=== PATIENT | female | born 1950 | race Caucasian/White ===

== ENCOUNTER 2017-07-16 07:23 | Emergency (ER) | payer MEDICARE, OTHER ==
[~2017-07-16] VITALS: Ht 160 cm; Wt 72.6 kg
[2017-07-16 07:45] VITALS: BP 172/68
--- NOTE | 2017-07-16 07:54 | Emergency Room Report ---
History of Present Illness General Chief Complaint: Nausea, Vomiting, and Diarrhea Source: Patient Present Illness HPI Patient presents with vomiting and diarrhea. She also has abdominal pain is 7/ 10. This is epigastric and nonradiating. This began last night. Her had the same 3 days ago but is better at this time. She denies any fevers or chills. She denies any melena or blood in her vomitus. She denies any travel. The stool is loose and brown. The patient has chronic edema of her lower extremities. This is no change. Has had this for 4-5 years. She denies any heart failure or renal problems. This has been treated with HCTZ. No anxiety, chest pain, palpitations. There is some weakness as she has not been able to keep anything down. No rash. No headache. Allergies: Uncoded Allergies: ROCHA BEANS (Allergy, Unknown, 07/16/17) Patient History Past Medical History: see triage record Social History: Denies: smoking, alcohol use Social History Narrative - here with son Last Menstrual Period: 2006 Now: No Reviewed Nursing Documentation: PMH: Agreed, PSxH: Agreed Nursing Documentation-PMH Past Medical History: No Stated History Review of Systems All Other Systems: negative except mentioned in HPI Physical Exam Vital Signs Date Time Temp Pulse Resp B/P (MAP) Pulse Ox O2 Delivery O2 Flow Rate FiO2 07/16/17 07:31 98.1 77 18 173/76 96 Room Air Sp02 EP Interpretation: reviewed, normal General Appearance: well appearing, no apparent distress, GCS 15 Head: normocephalic, atraumatic Eyes: bilateral eye normal inspection, bilateral eye PERRL ENT: moist mucus membranes Neck: supple Respiratory: lungs clear, normal breath sounds Cardiovascular #1: regular rate, rhythm, edema - 2+ bilateral - pedal and tibial Cardiovascular #2: 2+ radial (R) Gastrointestinal: no guarding, no rebound, tenderness - epigastric, other - RUQ is not tender, overweight Musculoskeletal: back normal, gait/station normal, normal range of motion, no calf tenderness, Shelia's Sign negative Neurologic: alert, oriented x3, grossly normal Psychiatric: mood/affect normal Skin: normal inspection, warm/dry Medical Decision Making Diagnostic Impression: Primary Impression: Viral gastroenteritis Additional Impression: Edema Qualified Codes: R60.9 - Edema, unspecified ER Course Patient presents with epigastric pain nausea vomiting diarrhea. Differential includes gastroenteritis, gastritis, gastritis, GERD amongst others. We need to exclude cardiac cause. Evaluation will be with EKG, chest x-ray, abdominal films and labs. The patient was treated with Zofran, upset and a small dose of morphine. Hydration will be minimal as she has edema. = source. Not appear toxic or sy of bacterial invasive GItis. Exam against DVT. Patient refuses morphine. States pain resolved. Labs significant for normal WBC, H/H, electrolytes and BNP. EKG unremarkable as is chest XR. Improved with treatment. Discussed treatment plan and observation. Told not to start dyazide until GI sy resolved. Patient stable for outpatient observation and treatment. Laboratory Tests Test 07/16/17 07:58 White Blood Count 7.5 K/UL (4.8-10.8) Red Blood Count 5.20 M/UL (4.20-5.40) Hemoglobin 15.0 G/DL (12.0-16.0) Hematocrit 45.1 % (37.0-47.0) Mean Corpuscular Volume 87 FL (80-99) Mean Corpuscular Hemoglobin 28.8 PG (27.0-31.0) Mean Corpuscular Hemoglobin Concent 33.2 G/DL (32.0-36.0) Red Cell Distribution Width 11.8 % (11.6-14.8) Platelet Count 163 K/UL (150-450) Mean Platelet Volume 8.6 FL (6.5-10.1) Neutrophils (%) (Auto) % (45.0-75.0) Lymphocytes (%) (Auto) % (20.0-45.0) Monocytes (%) (Auto) % (1.0-10.0) Eosinophils (%) (Auto) % (0.0-3.0) Basophils (%) (Auto) % (0.0-2.0) Differential Total Cells Counted 100 Neutrophils % (Manual) 81 % (45-75) H Lymphocytes % (Manual) 8 % (20-45) L Monocytes % (Manual) 5 % (1-10) Eosinophils % (Manual) 1 % (0-3) Basophils % (Manual) 1 % (0-2) Band Neutrophils 4 % (0-8) Platelet Estimate Adequate Platelet Morphology Normal Red Blood Cell Morphology Normal Prothrombin Time 9.6 SEC (9.30-11.50) Prothrombin Time INR 0.9 (0.9-1.1) PTT 26 SEC (23-33) Urine Color Pale yellow Urine Appearance Clear Urine pH 6 (4.5-8.0) Urine Specific [place] 1.015 (1.005-1.035) Urine Protein Negative (NEGATIVE) Urine Glucose (UA) Negative (NEGATIVE) Urine Ketones Negative (NEGATIVE) Urine Occult Blood Negative (NEGATIVE) Urine Nitrite Negative (NEGATIVE) Urine Bilirubin Negative (NEGATIVE) Urine Urobilinogen Normal MG/DL (0.0-1.0) Urine Leukocyte Esterase 1+ (NEGATIVE) H Urine RBC 0-2 /HPF (0 - 2) Urine WBC 0-2 /HPF (0 - 2) Urine Squamous Epithelial Cells Occasional /LPF Urine Bacteria Occasional /HPF (NONE) Sodium Level 142 mEQ/L (135-145) Potassium Level 3.7 mEQ/L (3.4-4.9) Chloride Level 100 mEQ/L (98-107) Carbon Dioxide Level 31 mEQ/L (20-30) H Anion Gap 11 (5-15) Blood Urea Nitrogen 16 mg/dL (7-23) Creatinine 1.0 mg/dL (0.5-0.9) H Estimate Glomerular Filtration Rate 55.5 mL/min (>60) Glucose Level 164 mg/dL (74-106) H Calcium Level 9.0 mg/dL (8.6-10.2) Total Bilirubin 0.8 mg/dL (0.0-1.2) Aspartate Amino Transferase (AST) 15 U/L (5-40) Alanine Aminotransferase (ALT) 16 U/L (3-33) Alkaline Phosphatase 76 U/L (35-104) Troponin I < 0.30 ng/mL (<=0.30) Total Protein 6.9 g/dL (6.6-8.7) Albumin 4.3 g/dL (3.5-5.2) Globulin 2.6 g/dL Albumin/Globulin Ratio 1.6 (1.0-2.7) Lipase 31 U/L (< 60) EKG Diagnostic Results Rate: normal Rhythm: NSR ST Segments: no acute changes Rhythm Strip Diag. Results EP Interpretation: yes Rhythm: NSR, no PVC's, no ectopy Chest X-Ray Diagnostic Results Chest X-Ray Diagnostic Results : Chest X-Ray Ordered: Yes # of Views/Limited/Complete: 1 View Indication: Other EP Interpretation: Yes Interpretation: no consolidation, no effusion, no pneumothorax, no acute cardiopulmonary disease Impression: No acute disease Electronically Signed by: signed Zachary Thapa MD Last Vital Signs Date Time Temp Pulse Resp B/P (MAP) Pulse Ox O2 Delivery O2 Flow Rate FiO2 07/16/17 11:16 72 16 155/78 99 Room Air 07/16/17 10:01 97.2 Status: improved Disposition: HOME, SELF-CARE Condition: Improved Scripts Triamterene/Hydrochlorothiazide* (DYAZIDE 37.5-25 MG TAB*) 1 Each Tablet 1 TAB ORAL QOD Y for edema, #20 TAB Prov: Zachary Thapa M.D. 07/16/17 Diphenoxylate HCl/Atropine (Lomotil Tablet) 1 Each Tablet 1 EACH PO BID, #4 TAB Prov: Zachary Thapa M.D. 07/16/17 Ondansetron Odt* (ZOFRAN ODT*) 4 Mg Tab.rapdis 4 MG ORAL Q8H Y for Nausea & Vomiting, #6 TAB 0 Refills Prov: Zachary Thapa M.D. 07/16/17 Referrals: NOT CHOSEN ARIAN/,REFERRING (PCP) Zachary Thapa M.D. Jul 16, 2017 07:54
[2017-07-16] MEDS ORDERED: Famotidine 20 MG/ 2ML VIAL IVP ONE (08:00)
[2017-07-16 08:41] LABS: ALBUMIN/GLOBULIN RATIO 1.6 (1.0-2.7); GLOMERULAR FILTRATION RATE 55.5 mL/min (>60); POTASSIUM 3.7 mEQ/L (3.4-4.9); TOTAL PROTEIN 6.9 g/dL (6.6-8.7); TROPONIN I < 0.30 ng/mL (<=0.30)
--- NOTE | 2017-07-16 08:53 | Diagnostic Imaging Report ---
Indication: Chest pain Technique: XRAY CHEST 1 V Comparison:None Findings: Poor inspiration. Heart is probably normal in size. Aorta is calcified. Mild interstitial changes noted. No alveolar infiltrates. No pleural fluid. Degenerative changes present in the spine. Impression: Atherosclerotic and degenerative change. Mild interstitial disease. This may be acute or chronic. Comparison to old films would be helpful.
--- NOTE | 2017-07-16 08:54 | Diagnostic Imaging Report ---
Indication: ABD PAIN Technique: XRAY ABDOMEN 1VIEW/KUB Comparison: None. Findings: The abdomen is relatively gasless. Mild degenerative changes noted in the spine. The small amount of gas is present is in normal size loops of bowel. No gross free air. Impression: Degenerative change of the spine. Relatively gasless abdomen.
[2017-07-16 09:05] VITALS: BP 148/50
[2017-07-16 09:12] LABS: MEAN CORPUSCULAR HEMOGLOBIN 28.8 PG (27.0-31.0); MEAN CORPUSCULAR HGB CONC 33.2 G/DL (32.0-36.0); MEAN CORPUSCULAR VOLUME 87 FL (80-99); MEAN PLATELET VOLUME 8.6 FL (6.5-10.1); PLATELET COUNT 163 K/UL (150-450); RED CELL DISTRIBUTION WIDTH 11.8 % (11.6-14.8); WHITE BLOOD COUNT 7.5 K/UL (4.8-10.8)
[2017-07-16 09:14] LABS: APPEARANCE,URINE CLEAR; KETONES,URINE NEGATIVE (NEGATIVE); LEUKOCYTE ESTERASE ,URINE 1+ (NEGATIVE); NITRITE,URINE NEGATIVE (NEGATIVE); PH,URINE 6 (4.5-8.0); PROTEIN,URINE NEGATIVE (NEGATIVE); UROBILINOGEN,URINE NORMAL MG/DL (0.0-1.0)
[2017-07-16 09:30] LABS: BACTERIA,URINE OCCASIONAL /HPF; INR 0.9 (0.9-1.1); PROTHROMBIN TIME 9.6 SEC (9.30-11.50); RBC,URINE 0-2 /HPF (0 - 2); SQUAMOUS EPITHELIAL CELL,UR OCCASIONAL /LPF (NONE/OCC); WBC,URINE 0-2 /HPF (0 - 2)
[2017-07-16 09:58] LABS: BAND NEUTROPHILS % (MANUAL) 4 % (0-8); BASOPHILS % (MANUAL) 1 % (0-2); EOSINOPHILS % (MANUAL) 1 % (0-3); LYMPHOCYTES % (MANUAL) 8 % (20-45); NEUTROPHILS % (MANUAL) 81 % (45-75); TOTAL CELLS COUNTED 100
[2017-07-16 10:00] LABS: PLATELET ESTIMATE ADEQUATE; PLATELET MORPHOLOGY NORMAL
[2017-07-16 10:01] VITALS: BP 138/72
[2017-07-16] MEDS ORDERED: LOMOTIL TABLET1 EAC1 PO (10:45)
[2017-07-16] MEDS ORDERED: ZOFRAN ODT4 MG ORAL (10:45)
[2017-07-16] MEDS ORDERED: TRIAMTERENE-HC1 EAC5 ORAL (10:45)
[2017-07-16 11:16] VITALS: BP 155/78
--- NOTE | 2017-07-18 18:38 | Cardiology Report ---
APPROVED REPORT EKG Measurement Heart [id number] Normal sinus rhythm Normal ECG
== END 2017-07-16 11:18 | disposition home or self-care (01) ==
LOC: EMR 07:51
DX: A08.4 Viral intestinal infection, unspecified (principal); R60.0 Localized edema
CPT/HCPCS: 36415; 71010; 74000; 80053; 81003; 83690; 84484; 85007; 85025; 85610; 85730; 93005; 96374; 96375; 99284; J1170; J2405; S0028

== ENCOUNTER 2018-02-12 17:12 | Emergency (ER) | payer MEDICARE, OTHER ==
[~2018-02-12] VITALS: Ht 157.5 cm; Wt 72.6 kg
[~2018-02-12 17:12] MED LIST: LOMOTIL TABLET1 EAC1 PO; TRIAMTERENE-HC1 EAC5 ORAL; ZOFRAN ODT4 MG ORAL
[2018-02-12 17:28] VITALS: BP 171/69
[2018-02-12] MEDS ORDERED: Norco 5mg/325mg tab ORAL ONE (17:45)
--- NOTE | 2018-02-12 17:49 | Emergency Room Report ---
History of Present Illness General Chief Complaint: Pain Source: Patient Present Illness HPI 68-year-old female with chronic lower extremity edema, presenting with right knee pain. Patient woke up in the middle the night, not sure if he checked she twisted it, noted her right knee to be swollen and painful. Patient has been able to walk however with a limp. Denies any fever chills, no redness of the area. Denies any history of gout Allergies: Uncoded Allergies: ROCHA BEANS (Allergy, Unknown, 07/16/17) Patient History Past Medical History: see triage record Past Surgical History: none Pertinent Family History: none Reviewed Nursing Documentation: PMH: Agreed; PSxH: Agreed Nursing Documentation-PMH Hx Hypertension: Yes Hx Gastrointestinal Problems: Yes - ERCP,CHOLECYSTECTOMY LAST JANUARY. Review of Systems All Other Systems: negative except mentioned in HPI Physical Exam Vital Signs Date Time Temp Pulse Resp B/P (MAP) Pulse Ox O2 Delivery O2 Flow Rate FiO2 02/12/18 17:16 98.6 66 18 171/69 94 Room Air 98.6 Sp02 EP Interpretation: reviewed, normal General Appearance: alert, GCS 15, non-toxic, mild distress Head: normocephalic, atraumatic Eyes: bilateral eye normal inspection, bilateral eye PERRL, bilateral eye EOMI ENT: normal ENT inspection, normal pharynx, normal voice, moist mucus membranes Neck: normal inspection, full range of motion, supple Respiratory: normal inspection, lungs clear, normal breath sounds, no respiratory distress, no retraction, no wheezing, speaking full sentences, chest symmetrical Cardiovascular #1: regular rate, rhythm, normal capillary refill, edema Cardiovascular #2: 2+ radial (R), 2+ radial (L) Gastrointestinal: normal inspection, non tender, soft, non-distended, no guarding Musculoskeletal: other - Right knee with mild effusion, no redness, no warmth, has full passive range of motion Neurologic: normal inspection, alert, oriented x3, responsive, motor strength/ tone normal, sensory intact, normal gait, speech normal Psychiatric: normal inspection, judgement/insight normal, memory normal Skin: normal inspection, normal color, no rash, warm/dry, well hydrated, normal turgor Procedures Splinting Splinting : Consent: Verbal Location: R knee Pre-Made Type: knee immobilizer Pre-Proc Neuro Vasc Exam: normal Patient Tolerated: Well Complications: None Medical Decision Making Diagnostic Impression: Primary Impression: Knee effusion, right ER Course 68-year-old female with right knee pain DDX: Sprain/strain vs. fracture versus ligamentous injury Osteoarthritis, gout At this time I am not concerned with septic joint, no fever no chills, is not warm Plan: Pain control XR ER course: X-ray negative for fracture, ++degenerative changes Patient placed in knee immobilizer and crutches Disposition: Patient is to be discharged home Patient instructed to keep splint on at all times, and to follow up with orthopedic surgery in 1 week. Patient educated to rest, ice, and elevate extremity and to avoid vigorous activity. Strict precautions discussed with patient on when to return to the emergency room including increased redness or swelling joints, increased pain/swelling of extremity, fever or chills, which could indicate severe illness. Patient is to follow up with their primary care doctor within 5 days. Please note that this Emergency Department Report was dictated using [employer] conversion technician technology software, occasionally this can lead to erroneous entry secondary to interpretation by the dictation equipment. Xray ordered: Right knee 3 view Indication: Pain EP Interpretation: Yes Interpretation: +degen changes, no fx, minimal effusion Impression: No acute disease Electronically signed by Ralf Ball MD Last Vital Signs Date Time Temp Pulse Resp B/P (MAP) Pulse Ox O2 Delivery O2 Flow Rate FiO2 02/12/18 17:28 98.6 18 171/69 94 Room Air 98.6 02/12/18 17:16 66 Disposition: HOME, SELF-CARE Condition: Improved Scripts Hydrocodone Bit/Acetaminophen 5-325* (NORCO 5-325*) 1 Each Tablet 1 TAB ORAL Q6H PRN for For Pain, #20 TAB 0 Refills Prov: Ralf Ball M.D. 02/12/18 Ralf Ball M.D. Feb 12, 2018 17:49
[2018-02-12] MEDS ORDERED: NORCO 5-325 TA1 EACH ORAL (18:06)
[2018-02-12 18:12] VITALS: BP 162/59
--- NOTE | 2018-02-13 09:57 | Diagnostic Imaging Report ---
Indication: Pain Knee pain/trauma 3 views of the right knee were obtained. Findings: There is distention of the suprapatellar pouch consistent with moderate to large joint effusion. No fracture or malalignment identified. Marginal spurs noted involving the knee joint. IMPRESSION: Large joint effusion Moderate arthrosis
== END 2018-02-12 18:24 | disposition home or self-care (01) ==
LOC: EMR 17:50
DX: M25.461 Effusion, right knee (principal); I10 Essential (primary) hypertension; Z90.49 Acquired absence of other specified parts of digestive tract
CPT/HCPCS: 99283

== ENCOUNTER 2019-05-26 10:17 | Emergency (ER) | payer MEDICARE, OTHER ==
[~2019-05-26] VITALS: Ht 160 cm; Wt 81.6 kg
[~2019-05-26 10:17] MED LIST changes: +NORCO 5-325 TA1 EACH ORAL
[2019-05-26] MEDS ORDERED: NKM (10:37)
--- NOTE | 2019-05-26 10:39 | Emergency Room Report ---
History of Present Illness General Chief Complaint: To Be Triaged Present Illness HPI 69-year-old female presents with chronic right knee pain that started greater than 20 days ago, patient reports right knee pain, right posterior thigh pain worsened with movement alleviated with rest, she states she has chronic pedal edema, no chest pain, no shortness of breath, no abdominal pain, she states she does not take her water pill and does not like to see doctors, patient wants to make sure nothing is broken she denies any trauma. Patient presents for evaluation Allergies: Uncoded Allergies: ROCHA BEANS (Allergy, Unknown, 07/16/17) Patient History Past Medical History: see triage record Reviewed Nursing Documentation: PMH: Agreed; PSxH: Agreed Nursing Documentation-PMH Hx Hypertension: Yes Hx Gastrointestinal Problems: Yes - ERCP,CHOLECYSTECTOMY LAST JANUARY. Review of Systems Musculoskeletal: Reports: joint pain, muscle pain; Denies: back pain All Other Systems: negative except mentioned in HPI Physical Exam Sp02 EP Interpretation: reviewed, normal General Appearance: well appearing, no apparent distress, alert Head: normocephalic, atraumatic Eyes: bilateral eye PERRL, bilateral eye EOMI ENT: uvula midline, moist mucus membranes Neck: supple, thyroid normal, supple/symm/no masses Respiratory: no respiratory distress, no accessory muscle use Cardiovascular #1: edema - Bilateral edema Gastrointestinal: non tender, soft, no guarding, no rebound Musculoskeletal: normal inspection, other - Right lower Extremity: 2+ PT DP, swelling noted, with pedal edema, slight tenderness to palpation of the right knee, valgus varus negative, anterior posterior drawer negative, patient is able to ambulate without any issues. No obvious effusion Neurologic: alert, oriented x3 Psychiatric: mood/affect normal Skin: no rash, warm/dry Medical Decision Making Diagnostic Impression: Primary Impression: Knee pain, right ER Course Patient with chronic right knee pain, patient most likely having knee pain secondary to improper foot wear, patient wears flip-flops, because she cannot wear any other shoes due to the edema in her bilateral legs, she had a negative work-up, no evidence of heart failure, patient was started on a water pill, patient has been noncompliant, her right knee pain is accumulation of her noncompliance, gait compensation, patient with improper foot wear, patient counseled to follow-up with a primary care doctor as well as an orthopedic doctor and a mule tender, patient will need proper shoes for support. Her neurovascular exam is unremarkable, low suspicion for fracture, possible osteoporosis, Other X-Ray Diagnostic Results Other X-Ray Diagnostic Results #1: X-Ray ordered: Right knee # of Views/Limited Vs Complete: 3 View Indication: Pain EP Interpretation: Yes Interpretation: no dislocation, no soft tissue swelling, no fractures Impression: No acute disease Electronically Signed by: Joel Mills MD Other X-Ray Diagnostic Results #2: X-Ray ordered: Lumbar sacral # of Views/Limited Vs Complete: 3 View Indication: Pain EP Interpretation: Yes Interpretation: no dislocation, no soft tissue swelling, no fractures Impression: No acute disease Electronically Signed by: Joel Mills MD Disposition: HOME, SELF-CARE Condition: Stable Scripts Methocarbamol* (ROBAXIN-750*) 750 Mg Tablet 750 MG PO QID, #28 TAB 0 Refills Prov: Joel Mills M.D. 05/26/19 Naproxen* (NAPROSYN*) 250 Mg Tablet 500 MG ORAL BID PRN for For Pain, #40 TAB 0 Refills Prov: Joel Mills M.D. 05/26/19 [facility] Patient Instructions: KNEE PAIN, Uncertain Cause, Knee Pain Additional Instructions: Please follow-up with your primary care doctor, consider taking the water pill, please also follow-up with podiatry for proper foot wear, please follow-up with an orthopedic surgeon. The patient was provided with discharge instructions, notified to follow-up with a primary care doctor and or specialist in the next 24-48 hours, and to return to the ED if they have worsening of their symptoms. Please note that this report is being documented using [employer]ac[employer] technology. This can lead to erroneous entry secondary to incorrect interpretation by the dictating instrument. Joel Mills M.D. May 26, 2019 10:39
--- NOTE | 2019-05-26 10:40 | NUR ---
ED Nurse Note: Pt came in from home due to R leg pain, started from R thigh radiating down x 1 month. Pain 10/10 ana cristina. BP 200/95 ana cristina, ERMD aware. Will cont to monitor.
[2019-05-26] MEDS ORDERED: NAPROXEN250 MG ORAL (10:41)
[2019-05-26] MEDS ORDERED: Naproxen 500mg tab ORAL ONE (10:45)
--- NOTE | 2019-05-26 11:13 | Diagnostic Imaging Report ---
Indication: Pain Knee pain/trauma 3 views of the right knee were obtained. Findings: There is joint space narrowing with marginal osteophyte formation and subchondral sclerosis. No definite fractures identified. No definite joint effusion seen. The bones are osteopenic. IMPRESSION: No acute injury appreciated. Study limited in this regard due to osteoporosis
--- NOTE | 2019-05-26 11:27 | Diagnostic Imaging Report ---
Indication: Back pain Comparison: None Findings: 3 views of the lumbar spine were obtained. Multilevel narrowing of intervertebral disks and associated endplate and facet osteophytes are present. No malalignment identified. No acute fracture definitely seen. The bones are osteopenic. Impression: Moderate spondylosis. No acute injury appreciated.
[2019-05-26] MEDS ORDERED: ROBAXIN-750750 MG PO (11:39)
[2019-05-26 11:45] VITALS: BP 200/95
[2019-05-26] MEDS ORDERED: oxyCODONE HCL/Acetaminophen 5/325mg ORAL ONE (11:45)
--- NOTE | 2019-05-26 11:45 | NUR ---
ER DISCHARGE NOTE: Patient is cleared to be discharged per ERMD, pt is aox4, on room air, with stable vital signs. pt was given dc and prescription instructions, pt was able to verbalize understanding, pt id band removed. pt is able to ambulate with steady gait. pt took all belongings.
== END 2019-05-26 11:45 | disposition home or self-care (01) ==
LOC: EMR 10:36
DX: M25.561 Pain in right knee (principal); I10 Essential (primary) hypertension; Z90.49 Acquired absence of other specified parts of digestive tract; Z91.14 Patient's other noncompliance with medication regimen
CPT/HCPCS: 72020; 99284

== ENCOUNTER 2019-12-18 04:02 | Emergency (ER) | payer MEDICARE, OTHER ==
[~2019-12-18] VITALS: Ht 167.6 cm; Wt 72.6 kg
[~2019-12-18 04:02] MED LIST changes: +NAPROXEN250 MG ORAL; +NKM; +ROBAXIN-750750 MG PO
--- NOTE | 2019-12-18 04:27 | Emergency Room Report ---
History of Present Illness General Chief Complaint: Nausea, Vomiting, and Diarrhea Source: Patient Present Illness HPI Disclaimer: Please note that this report is being documented using DRAGON technology. This can lead to erroneous entry secondary to incorrect interpretation by the dictating instrument. HPI: 69-year-old female with a history of hypertension noncompliant with medications presents for evaluation abdominal pain vomiting diarrhea. Symptoms began approximately midnight. No new foods or sick contacts noted. She denies fever or chills. Notes epigastric abdominal burning and persistent vomiting that is nonbloody. Also notes copious diarrhea. Denies melena or hematochezia. Denies dysuria hematuria. Patient had a cholecystectomy many years ago but no other abdominal surgeries. Denies fever chills, chest pain or shortness of breath PMH: Hypertension PSH: Cholecystectomy Allergies: None to medication Social Hx: Denies alcohol use Allergies: Uncoded Allergies: ROCHA BEANS (Allergy, Unknown, 07/16/17) Patient History Now: No Nursing Documentation-PMH Hx Hypertension: Yes Review of Systems All Other Systems: negative except mentioned in HPI Physical Exam Vital Signs Date Time Temp Pulse Resp B/P (MAP) Pulse Ox O2 Delivery O2 Flow Rate FiO2 12/18/19 04:11 97.5 88 22 155/78 (103) 95 General: Awake and alert, no acute distress HEENT: NC/AT. EOMI. Cardiovascular: RRR. S1 and S2 normal. No murmur appreciated Resp: Normal work of breathing. No cough, wheezing or crackles appreciated Abdomen: Abdomen is soft, nondistended, obese abdomen. Tender in the epigastrium. No tenderness in lower quadrants. No rebound. Negative Lala's. Skin: Intact. No abrasions, laceration or rash over the exposed skin MSK: Normal tone and bulk. Moving all extremities. No obvious deformity. Neuro: Awake and alert. Mentating appropriately. Medical Decision Making Diagnostic Impression: Primary Impression: Gastroenteritis Additional Impression: Viral gastroenteritis ER Course 69-year-old female presents for evaluation of 5 hours abdominal discomfort, vomiting and diarrhea. Differential includes but not limited to gastritis, gastroenteritis, pancreatitis, appendicitis, UTI, pyelonephritis, nephrolithiasis. Of these, gastroenteritis from a viral source will be most likely. Will start IV fluids, antiemetics, check screening labs. Also give famotidine and GI cocktail when she stops vomiting. Laboratory Tests Test 12/18/19 04:30 12/18/19 05:50 White Blood Count 9.2 K/UL (4.8-10.8) Red Blood Count 5.16 M/UL (4.20-5.40) Hemoglobin 14.6 G/DL (12.0-16.0) Hematocrit 43.3 % (37.0-47.0) Mean Corpuscular Volume 84 FL (80-99) Mean Corpuscular Hemoglobin 28.4 PG (27.0-31.0) Mean Corpuscular Hemoglobin Concent 33.8 G/DL (32.0-36.0) Red Cell Distribution Width 11.9 % (11.6-14.8) Platelet Count 144 K/UL (150-450) L Mean Platelet Volume 8.7 FL (6.5-10.1) Neutrophils (%) (Auto) 84.1 % (45.0-75.0) H Lymphocytes (%) (Auto) 8.2 % (20.0-45.0) L Monocytes (%) (Auto) 6.5 % (1.0-10.0) Eosinophils (%) (Auto) 0.3 % (0.0-3.0) Basophils (%) (Auto) 0.9 % (0.0-2.0) Sodium Level 141 MMOL/L (136-145) Potassium Level 3.5 MMOL/L (3.5-5.1) Chloride Level 103 MMOL/L (98-107) Carbon Dioxide Level 31 MMOL/L (21-32) Anion Gap 7 mmol/L (5-15) Blood Urea Nitrogen 23 mg/dL (7-18) H Creatinine 0.9 MG/DL (0.55-1.30) Estimate Glomerular Filtration Rate > 60 mL/min (>60) Glucose Level 188 MG/DL (74-106) H Calcium Level 9.1 MG/DL (8.5-10.1) Total Bilirubin 0.7 MG/DL (0.2-1.0) Aspartate Amino Transferase (AST) 17 U/L (15-37) Alanine Aminotransferase (ALT) 27 U/L (12-78) Alkaline Phosphatase 67 U/L (46-116) Total Protein 7.5 G/DL (6.4-8.2) Albumin 4.0 G/DL (3.4-5.0) Globulin 3.5 g/dL Albumin/Globulin Ratio 1.1 (1.0-2.7) Lipase 144 U/L (73-393) Urine Color Pale yellow Urine Appearance Clear Urine pH 6 (4.5-8.0) Urine Specific [place] 1.020 (1.005-1.035) Urine Protein Negative (NEGATIVE) Urine Glucose (UA) Negative (NEGATIVE) Urine Ketones Negative (NEGATIVE) Urine Blood Negative (NEGATIVE) Urine Nitrite Negative (NEGATIVE) Urine Bilirubin Negative (NEGATIVE) Urine Urobilinogen Normal MG/DL (0.0-1.0) Urine Leukocyte Esterase Negative (NEGATIVE) Reevaluation Time: 06:00 Last Vital Signs Date Time Temp Pulse Resp B/P (MAP) Pulse Ox O2 Delivery O2 Flow Rate FiO2 12/18/19 04:11 97.5 88 22 155/78 (103) 95 Reevaluation Impression Labs thus far returned within normal limits. Urinalysis is pending. She is well-appearing and her symptoms are now controlled. Will sign out to oncoming provider pending urinalysis and reevaluation though anticipate discharge home. Disposition: HOME, SELF-CARE Condition: Improved Scripts Ondansetron Odt* (ZOFRAN ODT*) 4 Mg Tab.rapdis 4 MG BC EVERY 6 HOURS PRN for Nausea & Vomiting, #20 TAB 0 Refills Prov: Pascual Rogers MD 12/18/19 Pascual Rogers MD Dec 18, 2019 04:27
[2019-12-18 04:30] VITALS: BP 155/78
--- NOTE | 2019-12-18 04:30 | NUR ---
ED Nurse Note: Pt walked into ED from home for c/o abdominal pain, n/v since 0000 today. Pt states pain is mid epigastric region and nonradiating. Pt also reports multiple episodes of vomiting. Pt is aaox4, no cardiac or respiratory distress noted. pt is ambulatory. IV line established, blood drawn and sent to lab. Will continue to monitor.
--- NOTE | 2019-12-18 04:30 | NUR ---
ED Nurse Note: Pt also reports multiple episodes of diarrhea.
[2019-12-18 04:39] LABS: BASOPHILS % (AUTO) 0.9 % (0.0-2.0); EOSINOPHILS % (AUTO) 0.3 % (0.0-3.0); HEMATOCRIT 43.3 % (37.0-47.0); HEMOGLOBIN 14.6 G/DL (12.0-16.0); LYMPHOCYTES % (AUTO) 8.2 % (20.0-45.0); MEAN CORPUSCULAR VOLUME 84 FL (80-99); MONOCYTES % (AUTO) 6.5 % (1.0-10.0); NEUTROPHILS % (AUTO) 84.1 % (45.0-75.0); PLATELET COUNT 144 K/UL (150-450); RED BLOOD COUNT 5.16 M/UL (4.20-5.40); RED CELL DISTRIBUTION WIDTH 11.9 % (11.6-14.8); WHITE BLOOD COUNT 9.2 K/UL (4.8-10.8)
--- NOTE | 2019-12-18 04:40 | NUR ---
ED Nurse Note: Pt is sleeping at this time, ERMD aware of pt not providing urine sample at this time and is ok with it.
[2019-12-18 05:03] LABS: ANION GAP 7 mmol/L (5-15); BLOOD UREA NITROGEN 23 mg/dL (7-18); CALCIUM 9.1 MG/DL (8.5-10.1); CARBON DIOXIDE 31 MMOL/L (21-32); CHLORIDE 103 MMOL/L (98-107); CREATININE 0.9 MG/DL (0.55-1.30); POTASSIUM 3.5 MMOL/L (3.5-5.1); SODIUM 141 MMOL/L (136-145)
[2019-12-18 05:08] LABS: ALANINE AMINOTRANSFERASE 27 U/L (12-78); ALBUMIN/GLOBULIN RATIO 1.1 (1.0-2.7); ALKALINE PHOSPHATASE 67 U/L (46-116); ASPARTATE AMINO TRANSFERASE 17 U/L (15-37); BILIRUBIN,TOTAL 0.7 MG/DL (0.2-1.0)
[2019-12-18] MEDS ORDERED: ONDANSETRON ODT4 MG BC (05:36)
--- NOTE | 2019-12-18 07:09 | NUR ---
HAND-OFF: Report given to LACIE Allen.
[2019-12-18 07:33] LABS: APPEARANCE,URINE CLEAR; BILIRUBIN, URINE NEGATIVE (NEGATIVE); COLOR,URINE PALE YELLOW; GLUCOSE, URINE (UA) NEGATIVE (NEGATIVE); KETONES,URINE NEGATIVE (NEGATIVE); LEUKOCYTE ESTERASE ,URINE NEGATIVE (NEGATIVE); NITRITE,URINE NEGATIVE (NEGATIVE); PH,URINE 6 (4.5-8.0); PROTEIN,URINE NEGATIVE (NEGATIVE); UROBILINOGEN,URINE NORMAL MG/DL (0.0-1.0)
[2019-12-18 07:58] VITALS: BP 150/80
--- NOTE | 2019-12-18 07:58 | NUR ---
ER DISCHARGE NOTE: Patient is cleared to be discharged per ERMD, pt is aox4, on room air, with stable vital signs. pt was given dc and prescription instructions, pt was able to verbalize understanding, pt id band and iv site removed without complications. pt is able to ambulate with steady gait. pt took all belongings.
== END 2019-12-18 07:58 | disposition home or self-care (01) ==
LOC: EMR 04:30
DX: A08.4 Viral intestinal infection, unspecified (principal); K52.9 Noninfective gastroenteritis and colitis, unspecified; Z90.49 Acquired absence of other specified parts of digestive tract; I10 Essential (primary) hypertension
CPT/HCPCS: 36415; 80053; 81003; 83690; 85025; 96361; 96374; 96375; 99284; J2405; J7030; S0028

== ENCOUNTER 2020-03-23 10:52 | Inpatient (IN) | payer MEDICARE, OTHER ==
[~2020-03-23] VITALS: Ht 157.5 cm; Wt 72.6 kg
[~2020-03-23 10:52] MED LIST changes: +ONDANSETRON ODT4 MG BC
[2020-03-23 11:10] VITALS: BP 190/88
--- NOTE | 2020-03-23 11:10 | NUR ---
ED Nurse Note: Patient walked into ED c/o right breast pain x2-3 days. Reports redness and discharges. Denies fever/ chills. Pt AAO x4, verbally responsive. Farsi speaking only. No acute distress.
--- NOTE | 2020-03-23 11:27 | NUR ---
ED Nurse Note: IV line established. Blood and urine specimen collected and sent to lab.
[2020-03-23] MEDS ORDERED: Vancomycin 1.5 GM in NS 275 ML IVPB ONE (11:30)
[2020-03-23] MEDS ORDERED: Omnipaque-300 100ml vial INJ ONE (11:30)
--- NOTE | 2020-03-23 11:33 | Emergency Room Report ---
History of Present Illness General Chief Complaint: Skin Rash/Abscess Source: Patient, Family Member Present Illness HPI 70-year-old female presents with right breast fullness, discharge, pain x3 days no aggravating relieving factors severity is moderate, constant patient had a mammogram 1 year ago which was negative, patient presents for evaluation no fevers no chills no chest pain or shortness of breath no dyspnea on exertion Allergies: Uncoded Allergies: ROCHA BEANS (Allergy, Unknown, 07/16/17) COVID-19 Screening Contact w/high risk pt: No Recent Travel to affected area: No Experienced COVID-19 symptoms?: No COVID-19 Testing performed FINISHED CARPET INSPECTOR: No Patient History Past Medical History: see triage record Reviewed Nursing Documentation: PMH: Agreed; PSxH: Agreed Nursing Documentation-PMH Past Medical History: No Stated History Hx Hypertension: Yes Review of Systems All Other Systems: negative except mentioned in HPI Physical Exam Vital Signs Date Time Temp Pulse Resp B/P (MAP) Pulse Ox O2 Delivery O2 Flow Rate FiO2 03/23/20 11:06 98.4 75 15 190/88 (122) 95 Room Air Sp02 EP Interpretation: reviewed, normal General Appearance: well appearing, no apparent distress, alert Head: normocephalic, atraumatic Eyes: bilateral eye PERRL, bilateral eye EOMI ENT: uvula midline, moist mucus membranes Neck: supple, thyroid normal, supple/symm/no masses Respiratory: lungs clear, no respiratory distress, no retraction, no accessory muscle use Cardiovascular #1: normal peripheral pulses, regular rate, rhythm, no edema, no gallop, no murmur, other - Chest wall: Circular [employer] Espitia RN, patient with redness of the right breast, mass felt below, no fluctuance no obvious discharge Gastrointestinal: non tender, soft, no guarding, no rebound Musculoskeletal: normal inspection Neurologic: alert, oriented x3 Psychiatric: mood/affect normal Skin: no rash, warm/dry Medical Decision Making Diagnostic Impression: Primary Impression: Cellulitis Qualified Codes: L03.90 - Cellulitis, unspecified Additional Impression: Breast mass ER Course 70-year-old female presents with right breast pain, differential diagnosis includes [place], cancer, cellulitis We will start antibiotics we will obtain a sepsis work-up will obtain a CT scan of the chest to evaluate for abscess Vancomycin started Patient will be admitted for observation and management Patient admitted to Dr. Kevin Laboratory Tests Test 03/23/20 11:32 White Blood Count 5.2 K/UL (4.8-10.8) Red Blood Count 4.43 M/UL (4.20-5.40) Hemoglobin 12.9 G/DL (12.0-16.0) Hematocrit 35.9 % (37.0-47.0) L Mean Corpuscular Volume 81 FL (80-99) Mean Corpuscular Hemoglobin 29.0 PG (27.0-31.0) Mean Corpuscular Hemoglobin Concent 35.8 G/DL (32.0-36.0) Red Cell Distribution Width 11.5 % (11.6-14.8) L Platelet Count 146 K/UL (150-450) L Mean Platelet Volume 8.2 FL (6.5-10.1) Neutrophils (%) (Auto) 52.6 % (45.0-75.0) Lymphocytes (%) (Auto) 32.9 % (20.0-45.0) Monocytes (%) (Auto) 10.1 % (1.0-10.0) H Eosinophils (%) (Auto) 3.3 % (0.0-3.0) H Basophils (%) (Auto) 1.1 % (0.0-2.0) Urine Color Pale yellow Urine Appearance Clear Urine pH 6.5 (4.5-8.0) Urine Specific [place] 1.005 (1.005-1.035) Urine Protein Negative (NEGATIVE) Urine Glucose (UA) Negative (NEGATIVE) Urine Ketones Negative (NEGATIVE) Urine Blood Negative (NEGATIVE) Urine Nitrite Negative (NEGATIVE) Urine Bilirubin Negative (NEGATIVE) Urine Urobilinogen Normal MG/DL (0.0-1.0) Urine Leukocyte Esterase 2+ (NEGATIVE) H Urine RBC 0 /HPF (0 - 2) Urine WBC 2-4 /HPF (0 - 2) Urine Squamous Epithelial Cells Few /LPF (NONE/OCC) Urine Bacteria Few /HPF (NONE) Sodium Level 147 MMOL/L (136-145) H Potassium Level 3.4 MMOL/L (3.5-5.1) L Chloride Level 108 MMOL/L (98-107) H Carbon Dioxide Level 30 MMOL/L (21-32) Anion Gap 9 mmol/L (5-15) Blood Urea Nitrogen 13 mg/dL (7-18) Creatinine 0.8 MG/DL (0.55-1.30) Estimated Glomerular Filtration Rate > 60 mL/min (>60) Glucose Level 135 MG/DL (74-106) H Lactic Acid Level 1.70 mmol/L (0.4-2.0) Calcium Level 8.9 MG/DL (8.5-10.1) Phosphorus Level 2.8 MG/DL (2.5-4.9) Magnesium Level 2.0 MG/DL (1.8-2.4) Total Bilirubin 0.5 MG/DL (0.2-1.0) Aspartate Amino Transferase (AST) 19 U/L (15-37) Alanine Aminotransferase (ALT) 27 U/L (12-78) Alkaline Phosphatase 68 U/L (46-116) Total Creatine Kinase 54 U/L (26-308) Creatine Kinase MB 1.1 NG/ML (0.0-3.6) Creatine Kinase MB Relative Index 2.0 Troponin I 0.000 ng/mL (0.000-0.056) Pro-B-Type Natriuretic Peptide 289 pg/mL (0-125) H Total Protein 6.7 G/DL (6.4-8.2) Albumin 3.2 G/DL (3.4-5.0) L Globulin 3.5 g/dL Albumin/Globulin Ratio 0.9 (1.0-2.7) L Lipase 141 U/L (73-393) EKG Diagnostic Results EKG Time: 11:30 EP Interpretation: NSR, rate 66, QTc 454, no acute ST elevations, normal axis Rhythm Strip Diag. Results Rhythm Strip Time: 11:38 EP Interpretation: yes Rate: 66 Rhythm: NSR, no PVC's, no ectopy Chest X-Ray Diagnostic Results Chest X-Ray Diagnostic Results : Chest X-Ray Ordered: Yes # of Views/Limited/Complete: 1 View Indication: Chest Pain EP Interpretation: Yes Interpretation: no consolidation, no effusion, no pneumothorax, no acute cardiopulmonary disease Impression: No acute disease Electronically Signed by: Joel Mills MD CT/MRI/US Diagnostic Results CT/MRI/US Diagnostic Results : Impression EXAM: CT Chest With Intravenous Contrast CLINICAL HISTORY: PAIN TECHNIQUE: Axial computed tomography images of the chest with intravenous contrast. CTDI is 10.4 mGy and DLP is 398 mGy-cm. One or more of the following dose reduction techniques were used: automated exposure control, adjustment of the mA and/or kV according to patient size, use of iterative reconstruction technique. COMPARISON: None available FINDINGS: Lungs: Mild scattered atelectasis. No mass. No consolidation. Pleural space: Unremarkable. No pneumothorax. No significant effusion. Heart: Mild cardiomegaly. No significant pericardial effusion. Mediastinum: Small hiatal hernia. Bones/joints: Degenerative changes of the spine. No acute fracture. No dislocation. Soft tissues: Unremarkable. Vasculature: No central or large pulmonary embolus identified. Performed as a PE study, and motion artifact also limits evaluation of the pulmonary arterial branches. No aortic aneurysm or dissection. Lymph nodes: Unremarkable. No enlarged lymph nodes. Gallbladder and bile ducts: Prior cholecystectomy. Spleen: Borderline size of the spleen. IMPRESSION: No acute findings in the chest. Dictated By: Sudhir Pelaez MD Electronically Signed By: Sudhir Pelaez MD Signed Date/Time 03/23/20 1231 CC: Joel Mlils MD Last Vital Signs Date Time Temp Pulse Resp B/P (MAP) Pulse Ox O2 Delivery O2 Flow Rate FiO2 03/23/20 11:10 98.4 75 15 190/88 95 Room Air Disposition: ADMITTED INPATIENT Condition: Stable Referrals: NON PHYSICIAN (PCP) Joel Mills MD March 23, 2020 11:33
[2020-03-23 11:53] LABS: APPEARANCE,URINE CLEAR; BASOPHILS % (AUTO) 1.1 % (0.0-2.0); BILIRUBIN, URINE NEGATIVE (NEGATIVE); COLOR,URINE PALE YELLOW; EOSINOPHILS % (AUTO) 3.3 % (0.0-3.0); GLUCOSE, URINE (UA) NEGATIVE (NEGATIVE); HEMATOCRIT 35.9 % (37.0-47.0); HEMOGLOBIN 12.9 G/DL (12.0-16.0); KETONES,URINE NEGATIVE (NEGATIVE); LEUKOCYTE ESTERASE ,URINE 2+ (NEGATIVE); LYMPHOCYTES % (AUTO) 32.9 % (20.0-45.0); MEAN CORPUSCULAR VOLUME 81 FL (80-99); MONOCYTES % (AUTO) 10.1 % (1.0-10.0); NEUTROPHILS % (AUTO) 52.6 % (45.0-75.0); NITRITE,URINE NEGATIVE (NEGATIVE); PH,URINE 6.5 (4.5-8.0); PLATELET COUNT 146 K/UL (150-450); PROTEIN,URINE NEGATIVE (NEGATIVE); RED BLOOD COUNT 4.43 M/UL (4.20-5.40); RED CELL DISTRIBUTION WIDTH 11.5 % (11.6-14.8); UROBILINOGEN,URINE NORMAL MG/DL (0.0-1.0); WHITE BLOOD COUNT 5.2 K/UL (4.8-10.8)
--- NOTE | 2020-03-23 11:56 | NUR ---
ED Nurse Note: Pt was taken to CT via sultana, accompanied by a tech.
--- NOTE | 2020-03-23 12:17 | NUR ---
ED Nurse Note: Pt returned from CT, not in any distress.
[2020-03-23 12:19] LABS: ANION GAP 9 mmol/L (5-15); BLOOD UREA NITROGEN 13 mg/dL (7-18); CALCIUM 8.9 MG/DL (8.5-10.1); CARBON DIOXIDE 30 MMOL/L (21-32); CHLORIDE 108 MMOL/L (98-107); CREATININE 0.8 MG/DL (0.55-1.30); POTASSIUM 3.4 MMOL/L (3.5-5.1); SODIUM 147 MMOL/L (136-145)
[2020-03-23 12:31] LABS: ALANINE AMINOTRANSFERASE 27 U/L (12-78); ALBUMIN 3.2 G/DL (3.4-5.0); ALBUMIN/GLOBULIN RATIO 0.9 (1.0-2.7); ALKALINE PHOSPHATASE 68 U/L (46-116); ASPARTATE AMINO TRANSFERASE 19 U/L (15-37); BILIRUBIN,TOTAL 0.5 MG/DL (0.2-1.0); CKMB 1.1 NG/ML (0.0-3.6); CREATINE KINASE 54 U/L (26-308); PHOSPHORUS 2.8 MG/DL (2.5-4.9)
--- NOTE | 2020-03-23 12:32 | Diagnostic Imaging Report ---
EXAM: CT Chest With Intravenous Contrast CLINICAL HISTORY: PAIN TECHNIQUE: Axial computed tomography images of the chest with intravenous contrast. CTDI is 10.4 mGy and DLP is 398 mGy-cm. One or more of the following dose reduction techniques were used: automated exposure control, adjustment of the mA and/or kV according to patient size, use of iterative reconstruction technique. COMPARISON: None available FINDINGS: Lungs: Mild scattered atelectasis. No mass. No consolidation. Pleural space: Unremarkable. No pneumothorax. No significant effusion. Heart: Mild cardiomegaly. No significant pericardial effusion. Mediastinum: Small hiatal hernia. Bones/joints: Degenerative changes of the spine. No acute fracture. No dislocation. Soft tissues: Unremarkable. Vasculature: No central or large pulmonary embolus identified. Performed as a PE study, and motion artifact also limits evaluation of the pulmonary arterial branches. No aortic aneurysm or dissection. Lymph nodes: Unremarkable. No enlarged lymph nodes. Gallbladder and bile ducts: Prior cholecystectomy. Spleen: Borderline size of the spleen. IMPRESSION: No acute findings in the chest.
[2020-03-23 13:00] VITALS: BP 165/87
--- NOTE | 2020-03-23 14:09 | NUR ---
ED Nurse Note: Pt c/o nausea. zofran given per ERMD.
--- NOTE | 2020-03-23 14:26 | NUR ---
ED Nurse Note: Report given to Yasmin MEDELLIN.
[2020-03-23 14:30] VITALS: BP 136/79
--- NOTE | 2020-03-23 14:30 | NUR ---
TRANSFER TO FLOOR: Patient transferred to [facility]. Report given to Ray MEDELLIN. Pt AAOx4, verbally responisve. No SOB. IV line on right AC 20g patent and intact. Sinus rhythm. All belongings sent with the patient.
--- NOTE | 2020-03-23 14:44 | History & Physical ---
History and Physical History & Physicial 70 year old female present with right breast pain and redness patient denies prior medical issues no fevers recorded CT chest negative PMH none MEDS/ALLERGIES negative SOCIAL negative PHYSICAL Laboratory Tests Test 03/23/20 11:32 White Blood Count 5.2 K/UL (4.8-10.8) Red Blood Count 4.43 M/UL (4.20-5.40) Hemoglobin 12.9 G/DL (12.0-16.0) Hematocrit 35.9 % (37.0-47.0) L Mean Corpuscular Volume 81 FL (80-99) Mean Corpuscular Hemoglobin 29.0 PG (27.0-31.0) Mean Corpuscular Hemoglobin Concent 35.8 G/DL (32.0-36.0) Red Cell Distribution Width 11.5 % (11.6-14.8) L Platelet Count 146 K/UL (150-450) L Mean Platelet Volume 8.2 FL (6.5-10.1) Neutrophils (%) (Auto) 52.6 % (45.0-75.0) Lymphocytes (%) (Auto) 32.9 % (20.0-45.0) Monocytes (%) (Auto) 10.1 % (1.0-10.0) H Eosinophils (%) (Auto) 3.3 % (0.0-3.0) H Basophils (%) (Auto) 1.1 % (0.0-2.0) Urine Color Pale yellow Urine Appearance Clear Urine pH 6.5 (4.5-8.0) Urine Specific [place] 1.005 (1.005-1.035) Urine Protein Negative (NEGATIVE) Urine Glucose (UA) Negative (NEGATIVE) Urine Ketones Negative (NEGATIVE) Urine Blood Negative (NEGATIVE) Urine Nitrite Negative (NEGATIVE) Urine Bilirubin Negative (NEGATIVE) Urine Urobilinogen Normal MG/DL (0.0-1.0) Urine Leukocyte Esterase 2+ (NEGATIVE) H Urine RBC 0 /HPF (0 - 2) Urine WBC 2-4 /HPF (0 - 2) Urine Squamous Epithelial Cells Few /LPF (NONE/OCC) Urine Bacteria Few /HPF (NONE) Sodium Level 147 MMOL/L (136-145) H Potassium Level 3.4 MMOL/L (3.5-5.1) L Chloride Level 108 MMOL/L (98-107) H Carbon Dioxide Level 30 MMOL/L (21-32) Anion Gap 9 mmol/L (5-15) Blood Urea Nitrogen 13 mg/dL (7-18) Creatinine 0.8 MG/DL (0.55-1.30) Estimat Glomerular Filtration Rate > 60 mL/min (>60) Glucose Level 135 MG/DL (74-106) H Lactic Acid Level 1.70 mmol/L (0.4-2.0) Calcium Level 8.9 MG/DL (8.5-10.1) Phosphorus Level 2.8 MG/DL (2.5-4.9) Magnesium Level 2.0 MG/DL (1.8-2.4) Total Bilirubin 0.5 MG/DL (0.2-1.0) Aspartate Amino Transf (AST/SGOT) 19 U/L (15-37) Alanine Aminotransferase (ALT/SGPT) 27 U/L (12-78) Alkaline Phosphatase 68 U/L (46-116) Total Creatine Kinase 54 U/L (26-308) Creatine Kinase MB 1.1 NG/ML (0.0-3.6) Creatine Kinase MB Relative Index 2.0 Troponin I 0.000 ng/mL (0.000-0.056) Pro-B-Type Natriuretic Peptide 289 pg/mL (0-125) H Total Protein 6.7 G/DL (6.4-8.2) Albumin 3.2 G/DL (3.4-5.0) L Globulin 3.5 g/dL Albumin/Globulin Ratio 0.9 (1.0-2.7) L Lipase 141 U/L (73-393) IMPRESSION breast cellulitis PLAN IV antibiotics ID to see outpatient mammogram pain control impression, plan, and exam edited and reviewed in detail care discussed with Cody Martinez MD March 23, 2020 14:43
--- NOTE | 2020-03-23 15:00 | NUR ---
MS NURSE NOTES: received pt from ED, came on gurney, awake, alert, oriented, Farsi speaking mainly, used cytology teacher to communicate with patient. RAC SL in place, pervious. Patient denies pain, has right breast redness, area is soft to touch. Patient also has 3-4+ non pitting edema, for 15 years. No respiratory distress noted, bed locked at lowest position possible, call light within easy reach, siderails upx2. Will continue to monitor patient.
[2020-03-23 16:00] VITALS: BP 143/61
--- NOTE | 2020-03-23 19:22 | NUR ---
HAND-OFF: Report given to LACIE Smith.
--- NOTE | 2020-03-23 19:30 | NUR ---
NURSE NOTES: PAtient awake in bed, alert and oriented x4, no complaint of pain at this time. Redness noted on part of right breast. No discharge. Instructed patient to use call light for assistance. Bed in lowest and and lock engaged. Will continue to monitor.
[2020-03-23 20:00] VITALS: BP 129/51
[2020-03-23] MEDS: Heparin 5000 units/ml inj SUBQ SCH (20:27)
[2020-03-23] MEDS: ceFAZolin sod 1 GM in D5W 55 ML IVPB SCH (21:27)
[2020-03-24] VITALS: BP 137/62
[2020-03-24 04:00] VITALS: BP 156/73
[2020-03-24] MEDS: ceFAZolin sod 1 GM in D5W 55 ML IVPB SCH (05:01)
[2020-03-24 07:05] LABS: BASOPHILS % (AUTO) 0.9 % (0.0-2.0); EOSINOPHILS % (AUTO) 2.5 % (0.0-3.0); HEMOGLOBIN 11.8 G/DL (12.0-16.0); LYMPHOCYTES % (AUTO) 35.2 % (20.0-45.0); MEAN CORPUSCULAR VOLUME 83 FL (80-99); MONOCYTES % (AUTO) 8.8 % (1.0-10.0); NEUTROPHILS % (AUTO) 52.6 % (45.0-75.0); PLATELET COUNT 157 K/UL (150-450); RED BLOOD COUNT 4.11 M/UL (4.20-5.40); RED CELL DISTRIBUTION WIDTH 11.8 % (11.6-14.8); WHITE BLOOD COUNT 6.1 K/UL (4.8-10.8)
--- NOTE | 2020-03-24 07:05 | NUR ---
HAND-OFF: Report given to LACIE Hoffman.
[2020-03-24 07:25] LABS: ANION GAP 7 mmol/L (5-15); BLOOD UREA NITROGEN 9 mg/dL (7-18); CALCIUM 8.3 MG/DL (8.5-10.1); CARBON DIOXIDE 31 MMOL/L (21-32); CHLORIDE 107 MMOL/L (98-107); CREATININE 0.9 MG/DL (0.55-1.30); POTASSIUM 3.2 MMOL/L (3.5-5.1); SODIUM 145 MMOL/L (136-145)
[2020-03-24 08:00] VITALS: BP 155/73
--- NOTE | 2020-03-24 08:18 | Diagnostic Imaging Report ---
Procedure: XRAY Chest 1v Reason for study: Preoperative exam. Cough. Comparison films: 07/16/2017. FINDINGS: A single one view chest is obtained. Vascularity is normal. The lung rodriguez are clear bilaterally. Cardiac and mediastinal silhouette are within normal limits. CP angles are sharp. The bony thorax appear unremarkable. IMPRESSION: NO ACUTE CARDIOPULMONARY DISEASE.
[2020-03-24] MEDS: Heparin 5000 units/ml inj SUBQ SCH ×2 (08:59→21:42)
--- NOTE | 2020-03-24 10:29 | General Progress Note ---
Assessment/Plan Assessment/Plan: IMPRESSION breast cellulitis PLAN IV antibiotics ID followup outpatient mammogram pain control await further improvement impression, plan, and exam edited and reviewed in detail care discussed with RN Subjective Allergies: Uncoded Allergies: ROCHA BEANS (Allergy, Unknown, 07/16/17) Subjective overall notes some improvement Objective Last 24 Hour Vital Signs Date Time Temp Pulse Resp B/P (MAP) Pulse Ox O2 Delivery O2 Flow Rate FiO2 03/24/20 08:00 98.1 73 18 155/73 (100) 98 03/24/20 04:00 97.9 69 20 156/73 (100) 95 03/24/20 00:00 99.0 71 19 137/62 (87) 94 03/23/20 21:00 Room Air 03/23/20 20:00 99.7 69 18 129/51 (77) 95 03/23/20 16:00 98.9 83 18 143/61 (88) 96 03/23/20 15:19 Room Air 03/23/20 14:30 98.4 79 19 136/79 99 Room Air 03/23/20 14:30 98.4 79 19 136/79 99 Room Air 03/23/20 13:47 170/63 03/23/20 13:27 190/88 03/23/20 13:00 98.4 71 18 165/87 96 Room Air 03/23/20 11:10 98.4 75 15 190/88 95 Room Air 03/23/20 11:06 98.4 75 15 190/88 (122) 95 Room Air Intake and Output 03/23/20 03/24/20 19:00 07:00 Intake Total 1200 ml 910 ml Balance 1200 ml 910 ml Intake IV Total 1200 ml 910 ml # Voids 1 4 Laboratory Tests 03/23/20 11:32: White Blood Count 5.2, Red Blood Count 4.43, Hemoglobin 12.9, Hematocrit 35.9L, Mean Corpuscular Volume 81, Mean Corpuscular Hemoglobin 29.0, Mean Corpuscular Hemoglobin Concent 35.8, Red Cell Distribution Width 11.5L, Platelet Count 146L , Mean Platelet Volume 8.2, Neutrophils (%) (Auto) 52.6, Lymphocytes (%) (Auto) 32.9, Monocytes (%) (Auto) 10.1H, Eosinophils (%) (Auto) 3.3H, Basophils (%) ( Auto) 1.1, Urine Color Pale yellow, Urine Appearance Clear, Urine pH 6.5, Urine Specific [place] 1.005, Urine Protein Negative, Urine Glucose (UA) Negative, Urine Ketones Negative, Urine Blood Negative, Urine Nitrite Negative, Urine Bilirubin Negative, Urine Urobilinogen Normal, Urine Leukocyte Esterase 2+H, Urine RBC 0, Urine WBC 2-4, Urine Squamous Epithelial Cells Few, Urine Bacteria Few, Sodium Level 147H, Potassium Level 3.4L, Chloride Level 108H, Carbon Dioxide Level 30, Anion Gap 9, Blood Urea Nitrogen 13, Creatinine 0.8, Estimat Glomerular Filtration Rate > 60, Glucose Level 135H, Lactic Acid Level 1.70, Calcium Level 8.9, Phosphorus Level 2.8, Magnesium Level 2.0, Total Bilirubin 0.5, Aspartate Amino Transf (AST/SGOT) 19, Alanine Aminotransferase (ALT/SGPT) 27, Alkaline Phosphatase 68, Total Creatine Kinase 54, Creatine Kinase MB 1.1, Creatine Kinase MB Relative Index 2.0, Troponin I 0.000, Pro-B-Type Natriuretic Peptide 289H, Total Protein 6.7, Albumin 3.2L, Globulin 3.5, Albumin/Globulin Ratio 0.9L, Lipase 141 03/24/20 05:25: White Blood Count 6.1, Red Blood Count 4.11L, Hemoglobin 11.8L, Hematocrit 34.0L , Mean Corpuscular Volume 83, Mean Corpuscular Hemoglobin 28.7, Mean Corpuscular Hemoglobin Concent 34.6, Red Cell Distribution Width 11.8, Platelet Count 157, Mean Platelet Volume 8.3, Neutrophils (%) (Auto) 52.6, Lymphocytes (% ) (Auto) 35.2, Monocytes (%) (Auto) 8.8, Eosinophils (%) (Auto) 2.5, Basophils ( %) (Auto) 0.9, Sodium Level 145, Potassium Level 3.2L, Chloride Level 107, Carbon Dioxide Level 31, Anion Gap 7, Blood Urea Nitrogen 9, Creatinine 0.9, Estimat Glomerular Filtration Rate > 60, Glucose Level 103, Calcium Level 8.3L, Carcinoembryonic Antigen [Pending] Height (Feet): 5 Height (Inches): 2.00 Weight (Pounds): 160 Objective WDWN NAD clear breath sounds bilaterally without rhonchi or wheeze [id number] without MRG NABS nontender no HSM no CCE nonfocal right breast with reduced erythema and induration Cody Kevin MD March 24, 2020 10:29
--- NOTE | 2020-03-24 11:28 | NUR ---
CASE MANAGEMENT:INITIAL REVIEW 70 YR OLD FEMALE FROM HOME CC;SKIN RASH. ABSCESS. SI; CELLULITIS. RIGHT BREAST MASS. 99.7 79 19 190/88 95% ON RA NA 147 K+ 3.4 CL 108 BG 135 BNP 289 ALB 3.2 US+ LEUKOCYTE CXR ~ NO ACUTE CARDIOPULMONARY DISEASE. CHEST CT W/CONTRAST~No acute findings in the chest. IS;VANCOMYCIN IV ONCE IVF NS BOLUS HYDRALAZINE IV ADMITTED TO MED SURG @ 1332 ON MED SURG STATUS DCP;FROM HOME
[2020-03-24 12:00] VITALS: BP 149/82
[2020-03-24] MEDS ORDERED: Vancomycin 1gm/D5W 275ml IVPB SCH ×2 (13:00)
--- NOTE | 2020-03-24 13:14 | Consultation ---
DATE OF CONSULTATION: 03/24/2020 INFECTIOUS DISEASES CONSULTATION CONSULTING PHYSICIAN: Nolan Roth MD. REFERRING PHYSICIAN: Cody Kevin MD. REASON FOR CONSULTATION: Breast cellulitis. HISTORY OF PRESENTING ILLNESS: This is a 70-year-old lady with history of hypertension, who came in with right breast pain as well as redness. She was found to have right breast cellulitis and an Infectious Diseases consultation has been obtained for antibiotics. PAST MEDICAL HISTORY: History of hypertension. SOCIAL HISTORY: She does not smoke, drink, or use drugs. FAMILY HISTORY: Noncontributory. REVIEW OF SYSTEMS: RESPIRATORY: No fever, chills, cough, shortness of breath or chest pain. CARDIAC: No chest pain. No palpitation. No dizziness. No syncope. She did have right breast pain. GASTROINTESTINAL: No nausea. No vomiting. No abdominal pain or diarrhea. MEDICATIONS: As an inpatient, she is on Ancef, subcutaneous heparin, Zofran, clonidine, Tylenol. ALLERGIES: To [place] beans noted. PHYSICAL EXAMINATION: VITAL SIGNS: Temperature of 98.1, T-max of 99.7, pulse of 73, respiratory rate 18, blood pressure 155/73, O2 saturation of 98%. HEENT: Pupils equally reactive to light and accommodation. Mouth appears clean without thrush. NECK: Supple. No adenopathy. No JVD. CARDIOVASCULAR: Regular rate and rhythm. No murmurs. LUNGS: Clear to auscultation bilaterally. No crackles. No wheezes. ABDOMEN: Soft and nontender. No organomegaly. Right breast erythema noted. EXTREMITIES: No cyanosis. No clubbing. Edema noted bilaterally. LABORATORY AND DIAGNOSTIC DATA: White count 6.1, hemoglobin 11.8, hematocrit 34, MCV 83, platelet count 157, neutrophils of 52%. Sodium 145, potassium 3.2, chloride 107, bicarb 31, BUN 9, creatinine 0.9, glucose 103. Calcium 8.3. Total bilirubin 0.5. AST 19, ALT 27, alkaline phosphatase 68. CK of 54, CK-MB 1.1. Troponin 0. Beta natriuretic peptide 289. Total protein 6.7. Albumin 3.2. Lipase of 141. UA is showing 2 to 4 white cells. Chest x-ray is showing no acute disease. CT chest showing no acute findings. ASSESSMENT: This is a 70-year-old lady with history of hypertension, who comes in with right breast erythema and pain and was found to have, 1. Right breast cellulitis. 2. History of hypertension. PLAN: 1. Discontinue Ancef. 2. We will start the patient on IV vancomycin. 3. We will follow up the patient clinically. I would like to thank, Dr. Kevin for this consultation. Nolan Roth M.D. DR: ELIA JOB#: [id number] CC: Cody Kevin M.D.; Fax#: [phone]
[2020-03-24 16:00] VITALS: BP 137/81
--- NOTE | 2020-03-24 19:00 | NUR ---
HAND-OFF: Report given to LACIE Garcia.
--- NOTE | 2020-03-24 19:30 | NUR ---
NURSE NOTES: RECEIVED PATIENT FROM LACIE SAUCEDO. PATIENT IS AWAKE, AAOX4, ON ROOM AIR, NO ACUTE DISTRESS NOTED. IV ON RIGHT ARM INTACT AND PATENT. PATIENT IS AMBULATORY, STEADY GAIT. REDNESS AND SWELLING NOTED ON RIGHT BREAST, BILATERAL LEGS EDEMA NOTED. PATIENT DENIES PAIN. BED IS LOCKED AND LOW, BED ALARMS ACTIVE, SIDE RAILS UP X2 AND CALL LIGHT IS WITHIN REACH. WILL CONTINUE TO MONITOR.
[2020-03-24 20:00] VITALS: BP 155/79
[2020-03-25] VITALS: BP 144/79
[2020-03-25 04:00] VITALS: BP 156/77
--- NOTE | 2020-03-25 07:20 | NUR ---
HAND-OFF: Report given to LACIE KIMBROUGH.
--- NOTE | 2020-03-25 07:54 | NUR ---
NURSE NOTES: Received report from Monica, RN. Patient received awake in bed, alert and oriented x 4, verbally responsive and able to make needs known in Farsi, no SOB noted, bed in lowest position with bed alarm on and breaks engaged, denies any pain at this time, noted eating breakfast with good appetite, IV line on R hand patent and intact, will continue to monitor for any changes and proceed with plan of care. Call light within reach.
[2020-03-25 08:00] VITALS: BP 148/80
--- NOTE | 2020-03-25 08:14 | General Progress Note ---
Assessment/Plan Assessment/Plan: IMPRESSION breast cellulitis PLAN IV antibiotics per ID ID followup and clearance outpatient mammogram pain control await further improvement and plans for dc impression, plan, and exam edited and reviewed in detail care discussed with RN Subjective Allergies: Uncoded Allergies: ROCHA BEANS (Allergy, Unknown, 07/16/17) Subjective overall with slow improvement on vanco ID noted Objective Last 24 Hour Vital Signs Date Time Temp Pulse Resp B/P (MAP) Pulse Ox O2 Delivery O2 Flow Rate FiO2 03/25/20 04:00 97.7 61 22 156/77 (103) 97 03/25/20 00:00 97.7 64 20 144/79 (100) 93 03/24/20 21:00 Room Air 03/24/20 20:00 98.2 62 20 155/79 (104) 96 03/24/20 16:00 98.6 72 18 137/81 (99) 96 03/24/20 12:00 97.9 61 17 149/82 (104) 95 03/24/20 09:00 Room Air Intake and Output 03/24/20 03/25/20 19:00 07:00 Intake Total 820 ml 900 ml Balance 820 ml 900 ml Intake Oral 720 ml IV Total 100 ml 900 ml # Voids 4 # Bowel Movements 1 Height (Feet): 5 Height (Inches): 2.00 Weight (Pounds): 160 Objective WDWN NAD clear breath sounds bilaterally without rhonchi or wheeze [id number] without MRG NABS nontender no HSM no CCE nonfocal right breast with reduced erythema and induration Cody Kevin MD March 25, 2020 08:14
[2020-03-25] MEDS: Heparin 5000 units/ml inj SUBQ SCH (08:34)
--- NOTE | 2020-03-25 08:37 | NUR ---
NURSE NOTES: Pt's heparin 9 am dose held d/t plt is 157 and latest Hgb is 11.8
--- NOTE | 2020-03-25 11:23 | Infectious Diseases Prog Note ---
Assessment/Plan Assessment/Plan antibiotics : vancomycin iv A 1. right breast cellulitis improving 2. hypertension P 1. d/c iv vancomycin 2 po doxycycline 7 more days 3. patient wants to go home Subjective Constitutional: Denies: fever, chills Respiratory: Denies: shortness of breath, dry cough Gastrointestinal/Abdominal: Reports: diarrhea - mild; Denies: nausea, vomiting Musculoskeletal: Denies: pain Allergies: Uncoded Allergies: ROCHA BEANS (Allergy, Unknown, 07/16/17) Objective Vital Signs Last 24 Hour Vital Signs Date Time Temp Pulse Resp B/P (MAP) Pulse Ox O2 Delivery O2 Flow Rate FiO2 03/25/20 09:00 Room Air 03/25/20 08:00 98.0 66 20 148/80 (102) 98 03/25/20 04:00 97.7 61 22 156/77 (103) 97 03/25/20 00:00 97.7 64 20 144/79 (100) 93 03/24/20 21:00 Room Air 03/24/20 20:00 98.2 62 20 155/79 (104) 96 03/24/20 16:00 98.6 72 18 137/81 (99) 96 03/24/20 12:00 97.9 61 17 149/82 (104) 95 Height (Feet): 5 Height (Inches): 2.00 Weight (Pounds): 160 Respiratory/Chest: lungs clear Cardiovascular: normal rate, regular rhythm, no gallop/murmur Abdomen: soft, non tender Extremities: no edema Skin: other - right breast erythema decreased Current Medications Medications (Trade) Dose Ordered Sig/Cristal Route PRN Reason Start Time Stop Time Status Last Admin Dose Admin Acetaminophen (Tylenol) 650 mg Q4H PRN ORAL mild pain/temp 03/23/20 14:45 04/22/20 14:44 Clonidine HCl (Catapres Tab) 0.1 mg Q4H PRN ORAL sbp > 160 03/23/20 14:45 06/21/20 14:44 Heparin Sodium (Porcine) (Heparin 5000 units/ml) 5,000 units EVERY 12 HOURS SUBQ 03/23/20 21:00 05/07/20 20:59 03/24/20 21:42 Ondansetron HCl (Zofran) 4 mg Q6H PRN IVP Nausea & Vomiting 03/23/20 14:45 04/22/20 14:44 Sodium Chloride 1,000 ml @ 100 mls/hr Q10H IV 03/23/20 14:45 04/22/20 14:44 03/25/20 06:45 Vancomycin HCl (Vanco rx to dose) 1 ea DAILY PRN MISC Per rx protocol 03/24/20 11:30 04/23/20 11:29 Vancomycin HCl 1 gm/Dextrose 275 ml @ 183.708 mls/hr Q24H IVPB 03/24/20 13:00 03/29/20 12:59 03/24/20 13:46 Nolan Roth MD March 25, 2020 11:23
[2020-03-25] MEDS ORDERED: Doxycycline Monohydrate 100mg ORAL SCH (11:30)
--- NOTE | 2020-03-25 11:54 | NUR ---
NURSE NOTES: received call from . patient was cleared by ID for discharge. Dr. tobias will order Doxycycline PO for discharge.
[2020-03-25 12:00] VITALS: BP 140/75
--- NOTE | 2020-03-25 14:01 | Consultation ---
History of Present Illness General Date patient seen: March 25, 2020 Reason for Hospitalization: Skin Rash/Abscess Present Illness HPI 70-year-old female well-known to me. History of complicated laparoscopic cholecystectomy at outside facility by outside surgeon. History of osteoarthritis lower extremity knees. Currently presented to emergency department complaining of right breast swelling and discomfort. States that 3 days prior to admission identified cellulitis that is been somewhat fluctuating with warmth and discomfort and tenderness in the right breast. Was seen in emergency department and surgery called to evaluate. I initially saw the patient in the emergency department apologize for the late entry of the note. Emergency department physician asked me to see patient given concerns for potential cancer given breast and etiology/appearance. When initially evaluated no fluctuance identified cellulitis noted. Definitely concerns given patient's age but fortunately in discussing with patient and her family she has had routine mammograms for a significant number years now with last one being done 8 months ago at [facility]. She states she was told by her physician who ordered that was negative and without any acute findings. These findings are only 3 days no blood discharge from the nipple. Allergies: Uncoded Allergies: ROCHA BEANS (Allergy, Unknown, 07/16/17) COVID-19 Screening Contact w/high risk pt: No Recent Travel to affected area: No Experienced COVID-19 symptoms?: No Medication History Scheduled No Known Medications* (NKM - No Known Medications*), 0 ., (Reported) Discontinued Medications Diphenoxylate HCl/Atropine (Lomotil Tablet), 1 EACH PO BID Discontinued Reason: Pt stopped taking med Hydrocodone Bit/Acetaminophen 5-325* ([place] 5-325*), 1 TAB ORAL Q6H PRN for For Pain Discontinued Reason: Pt stopped taking med Methocarbamol* (Robaxin-750*), 750 MG PO QID Discontinued Reason: Pt stopped taking med Naproxen* (Naprosyn*), 500 MG ORAL BID PRN for For Pain Discontinued Reason: Pt stopped taking med Ondansetron Odt* (Zofran Odt*), 4 MG ORAL Q8H PRN for Nausea & Vomiting Discontinued Reason: Pt stopped taking med Ondansetron Odt* (Zofran Odt*), 4 MG BC EVERY 6 HOURS PRN for Nausea & Vomiting Discontinued Reason: Pt stopped taking med Triamterene/Hydrochlorothiazide* (Dyazide 37.5-25 Mg Tab*), 1 TAB ORAL QOD PRN for edema Discontinued Reason: Pt stopped taking med Patient History History Provided By: Patient Healthcare decision maker N Resuscitation status Advanced Directive on File Past Medical/Surgical History Past Medical/Surgical History: (1) Edema (2) Knee pain, right (3) Nausea, vomiting, and diarrhea (4) Viral gastroenteritis (5) Gastroenteritis (6) Cellulitis (7) Breast mass (8) Cellulitis (9) Breast mass, right Review of Systems Review of Symptoms General ROS: no weight loss or fever Psychological ROS: no depression or mood changes, no memory loss Ophthalmic ROS: no visual changes or eye irritation ENT ROS: no nasal congestion, hearing loss, dizziness Allergy and Immunology ROS: no allergic symptoms or urticaria Hematological and Lymphatic ROS: no swollen glands, unusual bleeding or bruising Endocrine ROS: no polyuria, polydipsia, weight changes, temperature intolerance Respiratory ROS: no cough, shortness of breath, or wheezing Cardiovascular ROS: no chest pain or dyspnea on exertion Gastrointestinal ROS: denies abdominal pain, bright red blood in stool. Musculoskeletal ROS: no myalgias or arthralgias Neurological ROS: no TIA or stroke symptoms Dermatological ROS: no new or changing skin lesions, rashes or pruritis Physical Exam Physical Exam General appearance: alert, cooperative, no distress, appears stated age Head: Normocephalic, without obvious abnormality, atraumatic Eyes: conjunctivae/corneas clear. PERRL, EOM's intact. Fundi benign Throat: Lips, mucosa, and tongue normal. Teeth and gums normal Neck: supple, symmetrical, trachea midline, no adenopathy, thyroid: not enlarged, symmetric, no tenderness/mass/nodules, no carotid bruit and no JVD Lungs: clear to auscultation bilaterally Heart: regular rate and rhythm, S1, S2 normal, no murmur, click, rub or gallop Abdomen: soft, non-tender. Bowel sounds normal. No masses, no organomegaly Extremities: extremities normal, atraumatic, no cyanosis or edema Pulses: 2+ and symmetric Skin: Skin see below Neurologic: Grossly normal Last 24 Hour Vital Signs Date Time Temp Pulse Resp B/P (MAP) Pulse Ox O2 Delivery O2 Flow Rate FiO2 03/25/20 12:00 98.2 71 20 140/75 (96) 97 03/25/20 09:00 Room Air 03/25/20 08:00 98.0 66 20 148/80 (102) 98 03/25/20 04:00 97.7 61 22 156/77 (103) 97 03/25/20 00:00 97.7 64 20 144/79 (100) 93 03/24/20 21:00 Room Air 03/24/20 20:00 98.2 62 20 155/79 (104) 96 03/24/20 16:00 98.6 72 18 137/81 (99) 96 Intake and Output 03/24/20 03/25/20 19:00 07:00 Intake Total 820 ml 900 ml Balance 820 ml 900 ml Intake Oral 720 ml IV Total 100 ml 900 ml # Voids 4 # Bowel Movements 1 Height (Feet): 5 Height (Inches): 2.00 Weight (Pounds): 160 Medications Current Medications Medications (Trade) Dose Ordered Sig/Cristal Route PRN Reason Start Time Stop Time Status Last Admin Dose Admin Acetaminophen (Tylenol) 650 mg Q4H PRN ORAL mild pain/temp 03/23/20 14:45 04/22/20 14:44 Clonidine HCl (Catapres Tab) 0.1 mg Q4H PRN ORAL sbp > 160 03/23/20 14:45 06/21/20 14:44 Doxycycline Monohydrate (Doxycycline Monohydrate) 100 mg EVERY 12 HOURS ORAL 03/25/20 11:30 04/01/20 11:29 03/25/20 12:19 Heparin Sodium (Porcine) (Heparin 5000 units/ml) 5,000 units EVERY 12 HOURS SUBQ 03/23/20 21:00 05/07/20 20:59 03/24/20 21:42 Ondansetron HCl (Zofran) 4 mg Q6H PRN IVP Nausea & Vomiting 03/23/20 14:45 04/22/20 14:44 Sodium Chloride 1,000 ml @ 100 mls/hr Q10H IV 03/23/20 14:45 04/22/20 14:44 03/25/20 06:45 Assessment/Plan Problem List: (1) Breast mass, right Assessment & Plan: [age]-year-old female with no cancer history who is had routine follow-up in outpatient mammography last many months ago being negative per report presented with right breast tenderness cellulitis swelling pain. No bloody drainage. May noted a drop or 2 of serous fluid from the nipple but unsure. States that ongoing 3 days prior to admission. Uncomfortable discomfort. On examination no fluctuance. Cellulitis noted. CT reviewed. Likely mastitis. Given prior hospitalization potential MRSA. IV antibiotics admission and evaluation. On reevaluation today significant improvement will have cellulitis. Discussed with the patient's son. Plan for discharge on oral antibiotics follow-up with outpatient for repeat imaging given last one 8 months ago would be okay cellulitis improves consider repeat imaging early. Thank you ICD Codes: N63.10 - Unspecified lump in the right breast, unspecified quadrant SNOMED: 81574034 (2) Cellulitis Assessment & Plan: Lungs: Mild scattered atelectasis. No mass. No consolidation. Pleural space: Unremarkable. No pneumothorax. No significant effusion. Heart: Mild cardiomegaly. No significant pericardial effusion. Mediastinum: Small hiatal hernia. Bones/joints: Degenerative changes of the spine. No acute fracture. No dislocation. Soft tissues: Unremarkable. Vasculature: No central or large pulmonary embolus identified. Performed as a PE study, and motion artifact also limits evaluation of the pulmonary arterial branches. No aortic aneurysm or dissection. Lymph nodes: Unremarkable. No enlarged lymph nodes. Gallbladder and bile ducts: Prior cholecystectomy. Spleen: Borderline size of the spleen. IMPRESSION: No acute findings in the chest. ICD Codes: L03.90 - Cellulitis, unspecified SNOMED: 354627030 Qualifiers: Qualified Codes: L03.90 - Cellulitis, unspecified (3) Breast mass ICD Codes: N63.0 - Unspecified lump in unspecified breast SNOMED: 74185207 (4) Cellulitis ICD Codes: L03.90 - Cellulitis, unspecified SNOMED: [id number] Alexander Borjas March 25, 2020 14:01
[2020-03-25 16:00] VITALS: BP 138/79
--- NOTE | 2020-03-25 18:02 | NUR ---
NURSE NOTES: Patient was discharged today at 5:50 pm in stable condition with VS WNL. Patient signed all discharge paper works and has received all discharge instructions including reportable conditions, medication side effects, follow up with primary MD or Dr. Kevin. Inventory sheet signed and no missing belongings noted. IV line and ID band removed. No c/o any discomfort upon discharge. Patient was picked up by son, Larry at 5:50 pm.
--- NOTE | 2020-03-27 10:10 | Discharge Summary ---
Discharge Summary Discharge Summary _ DATE OF ADMISSION: 03/23/2020 DATE OF DISCHARGE: 03/25/2020 DISCHARGED BY: Dr. Kevin REASON FOR ADMISSION: 70 years old female with past medical history of hypertension , presented with right breast pain, fullness and surrounding erythema for 3 days. Patient had a mammogram about 8 months ago, which was negative. No reported fever or chills. No reported chest pain or shortness of breath. No dyspnea on exertion. Upon evaluation patient was afebrile. Laboratory work-up revealed no leukocytosis, stable hemoglobin and hematocrit Lactic acid 1.7. Troponin negative, pro BNP 289. EKG revealed sinus rhythm, no acute ischemic changes. Chest x-ray revealed no acute cardiopulmonary pathology. CT of the chest revealed no acute findings. Patient subsequently admitted for further management. CONSULTANTS: ID specialist Dr. Roth surgery Dr. Borjas [facility]RSE: Patient admitted to medical surgical floor. ID specialist and surgery consult requested. Patient started on broad-spectrum antibiotics. Blood cultures were negative. Patient remained afebrile, no leukocytosis. Right breast cellulitis was improving. IV antibiotic discontinued, and patient was sent home on oral doxycycline to complete the course. Patient clinically stabilized and was ready for discharge home outpatient mammogram to follow-up. FINAL DIAGNOSES: Right breast cellulitis Right breast pain DISCHARGE MEDICATIONS: See Medication Reconciliation list. DISCHARGE INSTRUCTIONS: Patient was discharged home. Follow-up with outpatient mammogram. I have been assigned to dictate discharge summary for this account. I was not involved in the patient's management. Joselin Slaughter NP March 27, 2020 10:10
== END 2020-03-25 17:53 | disposition home or self-care (01) | DRG 601 ==
LOC: EMR 11:17 → EDBEDREQ 13:50 → 4E 13:57
DX: N61.0 Mastitis without abscess (principal); I10 Essential (primary) hypertension
CPT/HCPCS: 36415; 71045; 71260; 80048; 80053; 81003; 82378; 82550; 82553; 83605; 83690; 83735; 83880; 84100; 84484; 85025; 87040; 93005; 96365; 96366; 96375; 99285; J2405; J7030; J8499